=== PATIENT | female | born 1965 | race Asian ===

== ENCOUNTER 2018-12-16 15:03 | Outpatient (CLI) | payer OTHER | END 2018-12-16 20:08 | disposition home or self-care (01) | LOC: LAB 15:03 | DX: D64.9 Anemia, unspecified (principal) | CPT/HCPCS: 85014; 85018 ==

== ENCOUNTER 2019-01-01 15:13 | Outpatient (CLI) | payer OTHER | END 2019-01-01 19:14 | disposition home or self-care (01) | LOC: LAB 15:13 | DX: D64.9 Anemia, unspecified (principal) | CPT/HCPCS: 85014; 85018 ==

== ENCOUNTER 2019-07-23 15:18 | Outpatient (CLI) | payer OTHER | END 2019-07-23 23:40 | disposition home or self-care (01) | LOC: LAB 15:18 | DX: D64.89 Other specified anemias (principal); R73.09 Other abnormal glucose | CPT/HCPCS: 83036 ==

== ENCOUNTER 2019-07-25 15:04 | Outpatient (CLI) | payer OTHER | END 2019-07-25 22:17 | disposition home or self-care (01) | LOC: LAB 15:04 | DX: D64.89 Other specified anemias (principal) | CPT/HCPCS: 85014; 85018 ==

== ENCOUNTER 2019-11-19 19:12 | Outpatient (CLI) | payer OTHER | END 2019-11-19 20:26 | disposition home or self-care (01) | LOC: LAB 19:12 | DX: D64.89 Other specified anemias (principal) | CPT/HCPCS: 85018 ==

== ENCOUNTER 2019-11-26 15:44 | Outpatient (CLI) | payer OTHER | END 2019-11-26 22:36 | disposition home or self-care (01) | LOC: LAB 15:44 | DX: D64.89 Other specified anemias (principal) | CPT/HCPCS: 85014; 85018 ==

== ENCOUNTER 2019-12-10 15:32 | Outpatient (CLI) | payer OTHER | END 2019-12-10 21:18 | disposition home or self-care (01) | LOC: LAB 15:32 | DX: D64.89 Other specified anemias (principal) | CPT/HCPCS: 85014; 85018 ==

== ENCOUNTER 2020-01-31 12:44 | Emergency (ER) | payer OTHER ==
[~2020-01-31] VITALS: Ht 152.4 cm; Wt 136.5 kg
[2020-01-31 12:53] VITALS: TEMP 97.3
[2020-01-31 13:29] LABS: PLATELET COUNT 169 K/uL (152-353)
[2020-01-31 13:40] LABS: POTASSIUM 4.6 mmol/L (3.6-5.2)
[2020-01-31 15:00] VITALS: BP 136/84
== END 2020-01-31 15:16 | disposition home or self-care (01) ==
LOC: ED 12:44
PROVIDERS: Emergency Medicine
DX: F41.8 Other specified anxiety disorders (principal); R41.82 Altered mental status, unspecified
CPT/HCPCS: 80053; 85027; 93005; 99283

== ENCOUNTER 2020-03-18 17:34 | Outpatient (CLI) | payer OTHER | END 2020-03-18 19:01 | disposition home or self-care (01) | LOC: LABW 17:34 | DX: D64.9 Anemia, unspecified (principal) | CPT/HCPCS: 85014; 85018 ==

== ENCOUNTER 2020-09-30 10:18 | Emergency (ER) | payer OTHER ==
[~2020-09-30] VITALS: Ht 152.4 cm; Wt 136.5 kg
[2020-09-30 10:20] VITALS: TEMP 97.9
[2020-09-30 11:05] LABS: PLATELET COUNT 175 K/uL (152-353)
[2020-09-30 11:25] LABS: POTASSIUM 3.7 mmol/L (3.6-5.2); SODIUM 136 mmol/L (136-145)
[2020-09-30 11:28] LABS: PARTIAL THROMBOPLASTIN TIME 25.2 SECONDS (24.5-33.6)
[2020-09-30 14:21] VITALS: BP 95/57
== END 2020-09-30 15:40 | disposition short-term general hospital (02) ==
LOC: ED 10:18
PROVIDERS: Hospitalist
DX: R07.89 Other chest pain (principal); N18.6 End stage renal disease; Z99.2 Dependence on renal dialysis
CPT/HCPCS: 80053; 82550; 83880; 84484; 85027; 85610; 85730; 93005; 99284

== ENCOUNTER 2020-12-28 11:30 | Emergency (ER) | payer OTHER ==
[~2020-12-28] VITALS: Ht 167.6 cm; Wt 172.4 kg
[2020-12-28 12:43] LABS: POTASSIUM 3.9 mmol/L (3.6-5.2); SODIUM 131 mmol/L (136-145)
[2020-12-28 12:55] LABS: PLATELET COUNT 138 K/uL (152-353)
[2020-12-28 16:17] VITALS: BP 112/73; TEMP 98
== END 2020-12-28 16:17 | disposition home or self-care (01) ==
LOC: ED 11:30
PROVIDERS: Family Medicine
DX: I50.9 Heart failure, unspecified (principal); J90 Pleural effusion, not elsewhere classified; Z03.818 Encounter for observation for suspected exposure to other biological agents ruled out
CPT/HCPCS: 80053; 83880; 84484; 85027; 87635; 93005; 99283; U0003

== ENCOUNTER 2021-10-20 09:07 | Emergency (ER) | payer OTHER ==
[~2021-10-20] VITALS: Ht 167.6 cm; Wt 161.7 kg
[2021-10-20 09:07] VITALS: TEMP 97.8
[2021-10-20 09:36] LABS: PLATELET COUNT 97 K/uL (152-353)
[2021-10-20 10:04] LABS: POTASSIUM 3.9 mmol/L (3.6-5.2)
[2021-10-20 10:08] LABS: PARTIAL THROMBOPLASTIN TIME 42.5 SECONDS (24.5-33.6)
[2021-10-20 10:30] VITALS: BP 105/69
== END 2021-10-20 10:40 ==
LOC: ED 09:11
PROVIDERS: Emergency Medicine
DX: N18.6 End stage renal disease (principal); Z99.2 Dependence on renal dialysis; I50.9 Heart failure, unspecified; I48.91 Unspecified atrial fibrillation; Z86.73 Personal history of transient ischemic attack (TIA), and cerebral infarction without residual deficits; E66.8 Other obesity
CPT/HCPCS: 80053; 83880; 84484; 85027; 85379; 85610; 85730; 93005; 99283